=== PATIENT | female | born 1955 | race Two or more races ===

== ENCOUNTER 2021-12-10 14:20 | Outpatient (CLI) | payer OTHER | END 2021-12-10 14:50 | disposition home or self-care (01) | LOC: PPH VACUNA 14:20 | PROVIDERS: ATTEND Emergency Medicine Pediatric Emergency Medicine | DX: Z23 Encounter for immunization (principal) ==

== ENCOUNTER 2022-01-08 08:52 | Outpatient (CLI) | payer OTHER | END 2022-01-08 08:58 | disposition home or self-care (01) | LOC: MAMO-SONO 08:52 | PROVIDERS: ATTEND Internal Medicine Cardiovascular Disease | DX: J44.9 Chronic obstructive pulmonary disease, unspecified (principal); R10.9 Unspecified abdominal pain; Z12.31 Encounter for screening mammogram for malignant neoplasm of breast; N63.11 Unspecified lump in the right breast, upper outer quadrant ==

== ENCOUNTER → 2022-01-08 | Outpatient (CLI) | payer OTHER | END | disposition home or self-care (01) | LOC: NUCLEAR 10:00 | PROVIDERS: ATTEND Internal Medicine Cardiovascular Disease | DX: J44.9 Chronic obstructive pulmonary disease, unspecified (principal); R10.9 Unspecified abdominal pain; Z13.1 Encounter for screening for diabetes mellitus; N63.11 Unspecified lump in the right breast, upper outer quadrant ==

== ENCOUNTER → 2022-01-16 | Outpatient (CLI) | payer OTHER | END | disposition home or self-care (01) | LOC: NUCLEAR 06:45 | PROVIDERS: ATTEND Internal Medicine Cardiovascular Disease | DX: I87.2 Venous insufficiency (chronic) (peripheral) (principal) ==

== ENCOUNTER 2022-09-08 10:30 | Outpatient (CLI) | payer OTHER | END 2022-09-08 10:33 | disposition home or self-care (01) | LOC: SONOGRAMA 10:30 | PROVIDERS: ATTEND Obstetrics & Gynecology | DX: R92.2 Inconclusive mammogram (principal) ==

== ENCOUNTER 2023-10-29 09:36 | Outpatient (CLI) | payer OTHER | END 2023-10-29 09:37 | disposition home or self-care (01) | LOC: NUCLEAR 09:36 | PROVIDERS: ATTEND Internal Medicine Cardiovascular Disease | DX: I10 Essential (primary) hypertension (principal); J44.9 Chronic obstructive pulmonary disease, unspecified; E11.9 Type 2 diabetes mellitus without complications ==